=== PATIENT | male | born 1965 | race Caucasian/White ===

== ENCOUNTER 2018-05-13 10:52 | Inpatient (IN) | payer SELFPAY ==
[~2018-05-13] VITALS: Ht 167.6 cm; Wt 90.7 kg
[2018-05-13] MEDS ORDERED: SODIUM CHLORIDE 0.9% 1,000 ML IV ONE ×2 (11:08→15:15)
[2018-05-13] MEDS ORDERED: LORAZEPAM 2MG/ML CPJ IV ONE ×4 (11:15→11:45)
[2018-05-13 11:49] LABS: BASOPHILS % 0.5 % (0.0-2.0); HEMATOCRIT. 39.7 % (42.0-52.0); HEMOGLOBIN. 13.6 g/dL (14.0-18.0); LYMPHOCYTES % 13.5 % (20.0-50.0); MEAN CORPUSCULAR HEMOGLOBIN 37.4 pg (28.0-32.0); MEAN CORPUSCULAR VOLUME 108.9 fL (80.0-94.0); MEAN PLATELET VOLUME 9.4 fl (7.4-10.4); MONOCYTES % 14.2 % (2.0-8.0); NEUTROPHILS % 71.8 % (40.0-76.0); PLATELET 88 x1000/uL (130-400); RED BLOOD CELL COUNT 3.65 mill/uL (4.7-6.1); RED CELL DISTRIBUTION WIDTH 14.3 % (11.6-14.6)
[2018-05-13 11:54] LABS: CHLORIDE 93 mEq/L (98-107)
[2018-05-13 12:04] LABS: ETHANOL BLOOD < 10 mg/dL
[2018-05-13 12:13] LABS: CARBAMAZEPINE < 0.5 ug/mL (4-12); PHENOBARBITAL < 2.1 ug/mL (15.0-40.0); VALPROIC ACID < 3.0 ug/mL (50-100)
[2018-05-13] MEDS ORDERED: CHLORDIAZEPOXIDE 25MG CAPSULE PO ONE (15:15)
[2018-05-13] MEDS ORDERED: LEVETIRACETAM 500MG PREMIX 100 ML IV ONE (15:15)
[2018-05-13] MEDS ORDERED: LORAZEPAM 2MG/ML CPJ IV PRN (22:27)
[2018-05-14] MEDS ORDERED: LEVETIRACETAM 500 MG in SODIUM CHLORIDE 0.9% 100 ML IV SCH ×2
[2018-05-14] MEDS ORDERED: LEVETIRACETAM 500MG PREMIX 100 ML IV SCH (01:42)
[2018-05-14] MEDS: SODIUM CHLORIDE 0.9% 1,000 ML IV SCH ×3 (02:17→18:43)
[2018-05-14 05:35] LABS: HEMATOCRIT. 37.6 % (42.0-52.0); HEMOGLOBIN. 13.1 g/dL (14.0-18.0); MEAN CORPUSCULAR HEMOGLOBIN 36.9 pg (28.0-32.0); MEAN CORPUSCULAR VOLUME 105.9 fL (80.0-94.0); MEAN PLATELET VOLUME 7.9 fl (7.4-10.4); RED BLOOD CELL COUNT 3.55 mill/uL (4.7-6.1)
[2018-05-14 05:52] LABS: PLATELET 50 x1000/uL (130-400)
[2018-05-14 05:55] LABS: CHLORIDE 97 mEq/L (98-107)
[2018-05-14 06:56] LABS: PLATELET ESTIMATE DECREASED
[2018-05-14] MEDS ORDERED: POTASSIUM CHLORIDE INJ 40 MEQ in DEXT 5% WATER 250 ML IV SCH (09:30)
[2018-05-14 11:30] VITALS: BP 147/89
[2018-05-14 13:32] VITALS: BP 112/76
[2018-05-14] MEDS ORDERED: PNEUMOCOCCAL VACCINE IM ONE (15:00)
[2018-05-14] MEDS ORDERED: INFLUENZA VACCINE IM ONE (15:00)
[2018-05-14 16:00] VITALS: BP 120/85
[2018-05-14 20:00] VITALS: BP 106/56
[2018-05-14] MEDS: LEVETIRACETAM 500 MG in SODIUM CHLORIDE 0.9% 100 ML IV SCH (20:37)
[2018-05-14] MEDS ORDERED: POTASSIUM CHLORIDE 20MEQ TABLET SR PO NR (21:30)
[2018-05-15] VITALS: BP 122/78
[2018-05-15 04:00] VITALS: BP 152/91
[2018-05-15 08:00] VITALS: BP 103/71
[2018-05-15] MEDS: LEVETIRACETAM 500 MG in SODIUM CHLORIDE 0.9% 100 ML IV SCH ×2 (09:00→09:17)
[2018-05-15] MEDS ORDERED: LEVETIRACETAM 500MG TABLET PO SCH (10:00)
[2018-05-15 11:00] VITALS: BP 103/71
== END 2018-05-15 11:55 | disposition home or self-care (01) | DRG 53 ==
LOC: ER 11:41 → EDBD 11:41 → 6EST 17:44 → 5WST 17:44 → UNDOADMIN 17:44 → ENRESERV 21:36 → ER 22:46 → EDBEDREQ 23:33 → CANRESERV 05-14 08:05 → ENRESERV 05-14 08:05
PROVIDERS: ADMIT Emergency Medicine; ATTEND Emergency Medicine
DX: R56.9 Unspecified convulsions (principal); D69.59 Other secondary thrombocytopenia; D53.9 Nutritional anemia, unspecified; F10.10 Alcohol abuse, uncomplicated; Z59.0 Homelessness; Z91.14 Patient's other noncompliance with medication regimen
CPT/HCPCS: 36415; 80156; 80165; 80184; 80185; 84132; 90686; 90732; 96361; 96365; 96375; 99291; G0482; J1953; J2060; J3480; J7030; J7050; J7060

== ENCOUNTER 2018-06-10 23:13 | Emergency (ER) | payer SELFPAY ==
[~2018-06-10] VITALS: Ht 170.2 cm; Wt 90.0 kg
[2018-06-11 02:58] LABS: *AMPHETAMINES SCREEN URINE NEGATIVE (NEGATIVE); *BARBITURATES SCREEN URINE NEGATIVE (NEGATIVE)
[2018-06-11 02:59] LABS: *BENZODIAZEPINES SCREEN URINE NEGATIVE (NEGATIVE); *COCAINE SCREEN URINE NEGATIVE (NEGATIVE); CANNABINOID URINE SCREEN NEGATIVE (NEGATIVE); METHADONE URINE SCREEN NEGATIVE (NEGATIVE); OPIATES URINE SCREEN NEGATIVE (NEGATIVE); PHENCYCLIDINE URINE SCREEN NEGATIVE (NEGATIVE)
[2018-06-11 03:36] LABS: CHLORIDE 104 mEq/L (98-107)
[2018-06-11 03:38] LABS: HEMATOCRIT. 37.9 % (42.0-52.0); HEMOGLOBIN. 12.9 g/dL (14.0-18.0); MEAN CORPUSCULAR HEMOGLOBIN 36.9 pg (28.0-32.0); MEAN CORPUSCULAR VOLUME 108.1 fL (80.0-94.0); MEAN PLATELET VOLUME 7.6 fl (7.4-10.4); PLATELET 106 x1000/uL (130-400); RED BLOOD CELL COUNT 3.51 mill/uL (4.7-6.1); RED CELL DISTRIBUTION WIDTH 14.6 % (11.6-14.6)
[2018-06-11 03:44] LABS: PHOSPHORUS 3.9 mg/dL (2.5-4.9)
[2018-06-11 04:36] LABS: PLATELET ESTIMATE DECREASED
[2018-06-11] MEDS: POTASSIUM CHLORIDE 20MEQ TABLET SR PO SCH (05:32)
[2018-06-11] MEDS: POTASSIUM CHLORIDE 20MEQ TABLET SR PO ONE (05:48)
[2018-06-11 09:25] VITALS: BP 108/70
== END 2018-06-11 09:41 | disposition home or self-care (01) ==
LOC: ER 23:13
DX: S00.03XA Contusion of scalp, initial encounter (principal); E87.6 Hypokalemia; F10.20 Alcohol dependence, uncomplicated; E11.9 Type 2 diabetes mellitus without complications; F17.200 Nicotine dependence, unspecified, uncomplicated; W18.39XA Other fall on same level, initial encounter; Y93.89 Activity, other specified; Y92.89 Other specified places as the place of occurrence of the external cause; Y99.8 Other external cause status; Y90.8 Blood alcohol level of 240 mg/100 ml or more
CPT/HCPCS: 36415; 70450; 80053; 80305; 82962; 83735; 84100; 85025; 93005; 99284; G0482